=== PATIENT | male | born 1975 | race Two or more races ===

== ENCOUNTER 2016-10-22 12:49 | Emergency (ER) | payer OTHER ==
[~2016-10-22] VITALS: Ht 177.8 cm; Wt 90.7 kg
[2016-10-22 13:07] VITALS: BP 138/82
[2016-10-22] MEDS ORDERED: NAPR500T3 PO (13:36)
--- NOTE | 2016-10-22 13:37 | PHYS DOC ---
Past Medical History Past Medical History: No Pertinent History Past Surgical History: Other Additional Past Surgical Histo: PELVIC SX Alcohol Use: None Drug Use: None Adult General Chief Complaint Chief Complaint: KNEE INJURY HPI HPI Patient is a 41 year old male presents emergency department stating that he has having right knee pain and discomfort. He states that 3 years ago he injured his right knee patella. He states that since that time his been having pain on and off. He states that he goes to the emergency department and gets a cortisone shot. Patient states that he has been having increased pain for the last 3 or 4 days. He states that he's been taken Tylenol for the pain and discomfort later at that he's been taken ibuprofen. Patient denies reinjuring his knee at this time. He denies any numbness or tingling down into his lower extremity. He states that he has called to 7 appointment up with orthopedic that they would not see him as they do not have his medical records. Request a note for work. Review of Systems Review of Systems Constitutional: Denies fever or chills [] Eyes: Denies change in visual acuity, redness, or eye pain [] HENT: Denies nasal congestion or sore throat [] Respiratory: Denies cough or shortness of breath [] Cardiovascular: No additional information not addressed in HPI [] GI: Denies abdominal pain, nausea, vomiting, bloody stools or diarrhea [] : Denies dysuria or hematuria [] Musculoskeletal: Denies back pain. Right knee pain and discomfort Integument: Denies rash or skin lesions [] Neurologic: Denies headache, focal weakness or sensory changes [] Allergies Allergies Allergies Coded Allergies Type Severity Reaction Last Updated Verified No Known Drug Allergies 10/22/16 No Physical Exam Physical Exam Constitutional: Well developed, well nourished, no acute distress, non-toxic appearance. [] HENT: Normocephalic, atraumatic, bilateral external ears normal, oropharynx moist, no oral exudates, nose normal. [] Eyes: PERRLA, EOMI, conjunctiva normal, no discharge. [] Neck: Normal range of motion, no tenderness, supple, no stridor. [] Cardiovascular:Heart rate regular rhythm, no murmur [] Lungs & Thorax: Bilateral breath sounds clear to auscultation [] Skin: Warm, dry, no erythema, no rash. [] Back: No tenderness Extremities: Right knee tenderness, no cyanosis, no clubbing, ROM intact, no edema. Negative valgus, negative Kauffman, negative Lachmans peripheral pulses 2+ cap refill less than 2 seconds. Neurologic: Alert and oriented X 3, normal motor function, normal sensory function, no focal deficits noted. [] Psychologic: Affect normal, judgement normal, mood normal. [] Current Patient Data Vital Signs Vital Signs Date Time Temp Pulse Resp B/P Pulse Ox O2 Delivery O2 Flow Rate FiO2 10/22/16 13:07 98.3 71 16 96 Room Air 98.3 EKG EKG [] Radiology/Procedures Radiology/Procedures [] Course & Med Decision Making Course & Med Decision Making Pertinent Labs and Imaging studies reviewed. (See chart for details) No x-rays were performed today as patient states that he has not reinjured the knee. Patient states to the nursing staff that he is here for a cortisone shot. Explained to patient that he needs to follow-up with orthopedic to have further evaluation of his knee if he continues to have pain and discomfort. Patient will be discharged home with naproxen. Recommended ice packs on 20 minutes off 20 minutes several times today also recommended elevation as much as possible he also recommended Dante wrap's. Signs and symptoms to return back to emergency department as been provided. [] Dragon Disclaimer Dragon Disclaimer This electronic medical record was generated, in whole or in part, using a voice recognition dictation system. Departure Departure Impression: Primary Impression: Right knee pain Disposition: 01 HOME, SELF-CARE Condition: STABLE Referrals: EUGENE BERNARD (PCP) Patient Instructions: Knee Pain, [id number] Additional Instructions: Activity as tolerated. Medications as prescribed. Naproxen should be taken with food. Stop taking if that develops upset stomach. Ice packs on 20 minutes off 20 minutes several times a day. Elevation as much as possible. Follow-up with orthopedic in which she state you've called to make an appointment with. Return back to emergency prior signs symptoms of become worse. Scripts Naproxen 500 Mg Tablet1 Tab PO BID #60 TAB Prov:JEAN BUSTAMANTE NP 10/22/16 JEAN BUSTAMANTE NP Oct 22, 2016 13:37
== END 2016-10-22 13:45 | disposition home or self-care (01) ==
LOC: ER 12:49
DX: M25.561 Pain in right knee (principal)
CPT/HCPCS: 99282

== ENCOUNTER → 2016-11-22 | Outpatient (CLI) | payer OTHER ==
[~2016-11-22] MED LIST: NAPR500T3 PO
--- NOTE | 2016-11-22 09:00 | KCIC ---
MRI lumbar spine without contrast Indication: Bilateral lower extremity radiculopathy. Multiplanar multi sequence imaging of the lumbar spine was performed without contrast. Curvature and alignment of the lumbar spine is normal. The vertebral body heights are well maintained. The marrow signal intensity is unremarkable. No geographic marrow lesion or acute compression fracture is detected. There is fairly normal height and hydration to the lumbar intervertebral discs. The conus is unremarkable at the L1 level. L1-2: Unremarkable for central canal or neural foraminal stenosis. L2-3: Minimal annular bulge is noted but no significant central canal or neural foraminal stenosis is identified. L3-4: Unremarkable. L4-5: There are mild facet changes noted. The central canal remains patent. No neural foraminal stenosis is identified. L5-S1: Mild degenerative facet changes are seen. There is mild broad-based disc bulging present but no resultant central canal or neural foraminal stenosis is identified. The paraspinous tissues are unremarkable. Impression: Very mild lumbar spondylosis. No focal disc protrusion, central canal or neural foraminal stenosis is identified. Electronically signed by: Tristan Pollard MD (Nov 22, 2016 08:58:52)
== END | disposition home or self-care (01) ==
LOC: KCIC MRI 07:56
PROVIDERS: ATTEND Orthopaedic Surgery
DX: M54.16 Radiculopathy, lumbar region (principal); M47.896 Other spondylosis, lumbar region
CPT/HCPCS: 72148